=== PATIENT | female | born 1955 | race Caucasian/White ===

== ENCOUNTER 2016-08-02 07:04 | Day surgery (SDC) | payer MEDICARE ==
[~2016-08-02] VITALS: Ht 171.4 cm; Wt 77.2 kg
--- NOTE | ~2016-08-02 | OR ---
PATIENT'S NAME: TI GARZA [facility] AGE: 60 Y [address] ROOM: [place] [id number] [place] [facility] [place]: 08/02/2016 OR/Procedure Report DISCHARGE DATE: 08/03/2016 FAMILY PHYSICIAN: Lanie Saenz APRN ATTENDING PHYSICIAN: Giovany Raines SURGEON: Giovany Raines MD FOREIGN LANGUAGE PROFESSOR: James Leslie MD. DATE OF PROCEDURE: 08/02/2016 PREOPERATIVE DIAGNOSES: 1. Cystocele. 2. Rectocele. 3. Stress urinary incontinence. POSTOPERATIVE DIAGNOSES: 1. Cystocele. 2. Rectocele. 3. Stress urinary incontinence. PROCEDURE PERFORMED: Anterior colporrhaphy, posterior colporrhaphy, and mid urethral sling placement with Advantage Fit sling. FINDINGS: Grade 3 rectocele, grade 2 cystocele, no apical prolapse. ANESTHESIA: General. COMPLICATIONS: None. ESTIMATED BLOOD LOSS: 50 mL. INDICATIONS: The patient is a female, who presented to my office with complaints of stress urinary incontinence as well as vulvovaginal symptoms. She was found to have a cystocele and rectocele. She was offered conservative management with physical therapy and pessary versus surgical management and the patient opted for surgical management. Please see H and P for her consent. DESCRIPTION OF PROCEDURE: The patient was taken to the operating room where she was placed under general anesthesia without complication. She was placed in dorsal lithotomy position. She was prepped and draped in the usual sterile fashion. A timeout was done. Weighted speculum was placed in the patient's vagina posteriorly. The anterior vagina was injected with 0.25% Marcaine with epinephrine. An incision was then made from 1 cm below the posterior margin of the urethral meatus toward the vaginal apex. The edges of the incision were grasped and retracted using Allis clamps. The vaginal epithelium was PATIENT'S NAME: TI GARZA [facility] AGE: 60 Y [address] ROOM: [place] [id number] [place]: [facility] [place] [place] DATE: 08/02/2016 OR/Procedure Report DISCHARGE DATE: 08/03/2016 FAMILY PHYSICIAN: Lanie Saenz APRN ATTENDING PHYSICIAN: Giovany Raines then dissected off the underlying vaginal muscularis using Metzenbaum scissors and blunt dissection. Metzenbaum scissors were then used to create a tunnel from the vaginal epithelium incision into the pubic rami bilaterally. The Advantage Fit sling and trocar were then advanced from the vaginal epithelial incision to the pubic rami. This was then advanced into the retropubic space and exited at the skin level. This was performed in a bilateral fashion. Prior to this being done, a Brooks catheter had been placed, and the bladder had been drained of all urine. The Brooks catheter was then removed and a 70- degree cystoscope was advanced into the bladder to inspect the bladder. It was noted to be free of any trauma or lacerations or foreign objects. The sling arms were noted to be well placed and were advanced under direct visualization with a cystoscope. The cystoscope was then removed over the bladder and the Brooks catheter was replaced and bladder was allowed to drain without difficulty. The sling was then appropriately tensioned beneath the urethra and the excess material of the sling arms was truncated at the skin level. Teeth were then used to grasp the skin incisions still of the underlying mesh arms to follow and prevent any tenting of the skin. The anterior repair was then performed using 0 Vicryl suture. Interrupted sutures were placed in the vaginal muscularis and adventitia to plicate in the midline without tension. Three stitches were placed. The vaginal epithelium was then trimmed and then reapproximated using 2-0 Vicryl suture in a running locked fashion. The weighted speculum was then removed and attention was then placed on the patient's rectocele. 0.25% Marcaine with epinephrine was then injected submucosally for hydrodissection along the rectocele. A vertical incision was then made to the perineal skin and vaginal mucosa. The skin was dissected away from the perineal body. The vaginal epithelium was then opened in the midline extending the incision superior to the level of the defect. The posterior vaginal epithelium was then dissected off the fibromuscularis from sidewall to sidewall. The posterior vaginal wall was then plicated in the midline with running sutures incorporating fibromuscularis tissue beginning proximally and progressing toward the hymenal ring. The vaginal epithelium was then trimmed and reapproximated using 0 Vicryl suture in a running locked fashion. Hemostasis was noted. The vagina was packed and Brooks catheter was hooked up to a catheter bag. All instruments, sponge, and needle counts were correct at the conclusion of the case. The patient tolerated the procedure well and was taken to PACU in stable condition. MD KRISTY VALENTINO/marycarmen PATIENT'S NAME: TI GARZA [facility] AGE: 60 Y [address] ROOM: [place] [id number] LOCATION: [facility] [place] [place] DATE: 08/02/2016 OR/Procedure Report DISCHARGE DATE: 08/03/2016 FAMILY PHYSICIAN: Lanie Saenz APRN ATTENDING PHYSICIAN: Giovany Raines /[id number] d: [id number]/22/[id number] t: 09/08/16 0923, OPERATIVE SUMMARY
[~2016-08-02 07:04] MED LIST: ACULAR5 ML OPHTH; ATIVAN 1 MG1 MG PO; GABAPENTIN100 MG PO; GLYXAMBI 10 MG1 EACH PO; LEVOTHROID (S150 MCG PO; PRED FORTE 1%5 ML OPHTH; ROXICODONE15 MG PO; ZYRTEC10 MG PO; [UNRECOGNIZED DRUG - OTHER] VAG
--- NOTE | 2016-08-02 17:54 | NUR ---
A & P REPAIR BY DR CAT MID-MORNING. RECEIVED IN 6523 AT 1145. IS ON HOURLY BP'S NOW, LAST HRLY @ 1999. THEN PRINT OFF ON QS PLEASE. IS ON INTERMITTENT O2, W/ CANNULA, WAS TAKEN OFF BY NICK Marcum @ 1600, THEN O2 SATS KEPT ALARMING & PT ASKED FOR IT BACK ON, SO EKATERINA PLACED IT BACK ON @ 1/2L @1700. SITTING UP IN BED VISITING W/ . REESE & VAG PACKING TO BE REMOVED @0500
[2016-08-03 05:40] LABS: HEMATOCRIT 39.6 % (33.0-46.0); HEMOGLOBIN 13.4 g/dL (10.0-15.0); MCH 32.2 pg (27.0-34.0); MCHC 33.8 gm/dL (32.0-36.5); MCV 95.2 fl (83.0-98.0); MPV 10.7 fl (9.4-12.4); RBC 4.16 M/uL (3.50-5.50); RDW-CV 12.5 % (11.9-14.6)
--- NOTE | 2016-08-03 06:26 | NUR ---
Patient c/o "gas and bloating"-bowel sounds active, patient is passing gas, advised patient to sit in chair and walk in room as tolerated, heat pad provided. Last percocet at 0400. Vag packing removed and carrillo d/c'd at 0500. Order for simethicone obtained for gas.
[2016-08-03] MEDS ORDERED: COLACE100 MG PO (10:24)
[2016-08-03] MEDS ORDERED: NORCO 5-325 TA1 EACH PO (10:24)
== END 2016-08-03 10:50 | disposition disaster alternative care site (69) ==
LOC: GSDC 07:04 → GMSU 07:04 → GOBS 11:45 → GSDC 13:00
PROVIDERS: Obstetrics & Gynecology
PROC: 0TSD0ZZ Reposition Urethra, Open Approach (ICD-10-PCS; principal; 2016-08-02)
PROC: 0TQD0ZZ Repair Urethra, Open Approach (ICD-10-PCS; 2016-08-02)
PROC: 0JQC0ZZ Repair Pelvic Region Subcutaneous Tissue and Fascia, Open Approach (ICD-10-PCS; 2016-08-02)
PROC: 0WQN0ZZ Repair Female Perineum, Open Approach (ICD-10-PCS; 2016-08-02)
DX: N39.3 Stress incontinence (female) (male) (principal); N81.10 Cystocele, unspecified; N81.6 Rectocele; E11.9 Type 2 diabetes mellitus without complications; F41.9 Anxiety disorder, unspecified; E03.9 Hypothyroidism, unspecified; Z90.49 Acquired absence of other specified parts of digestive tract; Z98.890 Other specified postprocedural states; Z98.41 Cataract extraction status, right eye; Z90.710 Acquired absence of both cervix and uterus
CPT/HCPCS: J0690; J0694; J1200; J2001; J2250; J2405; J2930; J3010; J7030